=== PATIENT | male | born 1980 | race African-American/Black ===

== ENCOUNTER 2020-03-20 13:38 | Emergency (ER) | payer OTHER ==
[~2020-03-20] VITALS: Ht 175.3 cm; Wt 64.0 kg
--- NOTE | 2020-03-20 15:28 | NUR ---
CALLED MOHAN BUSTAMANTE FOR EVALUATION OF PT.
--- NOTE | 2020-03-20 16:01 | NUR ---
Social Service Consult: Per ER nurseAnatoly's request, this SW assessed the patient at bedside due to SI w/Plan. The patient appears disheveled, is restless, guarded, agitated with tangential speech, Intense Eye contact, and flat affect. The patient stated to SW that he is experiencing SI w/ plan to run into traffic. Per patient, other symptoms he is experiencing include: paranoia, auditory hallucinations, and anger. SW offered patient voluntary psychiatric placement at [facility]( ). Patient expressed understanding and was agreeable to plan. [facility] [employer] [facility], Miguel [phone] and made referral. Per Miguel, Toxicology report needs to be faxed to [phone]. PAUL relayed request for toxicology report to NurseAnatoly. Anatoly to follow up. Addendum: 03/20/20 at 1617 by ROBBY MILLER [facility] ([id number] [place] [address]; Tel: )
[2020-03-20 16:12] LABS: BASOPHILS # (AUTO) 0.1 /CMM (0.0-0.2); BASOPHILS % (AUTO) 0.9 % (0.0-2.0); EOSINOPHILS % (AUTO) 3.7 % (0.0-6.0); HEMATOCRIT 41 % (39-51); HEMOGLOBIN 13.6 g/dL (13.5-17.5); LYMPHOCYTES % (AUTO) 34.7 % (20.0-44.0); MEAN CORPUSCULAR HGB CONC 33 g/dl (31.0-36.0); MEAN CORPUSCULAR VOLUME 90 fL (80-96); MONOCYTES # (AUTO) 0.6 /CMM (0.1-1.30); NEUTROPHILS # (AUTO) 2.8 /CMM (1.8-8.9); NEUTROPHILS % (AUTO) 49.7 % (43.0-81.0); PLATELET COUNT (AUTO) 220 /CMM (150-450); RED BLOOD CELL COUNT(AUTO) 4.58 MIL/uL (4.5-6.0); WHITE BLOOD COUNT (AUTO) 5.7 K/uL (4.3-11.0)
[2020-03-20 16:24] LABS: CALCIUM, SERUM 8.3 mg/dL (8.5-10.1); CARBON DIOXIDE 32 mmol/L (21-32); CHLORIDE 105 mmol/L (98-107); GLUCOSE 102 mg/dL (74-106); POTASSIUM 3.6 mmol/L (3.5-5.1); SODIUM SERUM 144 mmol/L (136-145); UREA NITROGEN, BLOOD 12 mg/dL (7-18)
[2020-03-20 16:38] LABS: ALANINE AMINOTRANSFERASE 30 U/L (12-78); ALBUMIN 3.7 g/dL (3.4-5.0); ALCOHOL, BLOOD < 3 mg/dL (0-0); ALKALINE PHOSPHATASE 56 U/L (46-116); ASPARTATE AMINOTRANSFERASE 22 U/L (15-37); BILIRUBIN,DIRECT 0.1 mg/dL (0.0-0.2); BILIRUBIN,TOTAL 0.5 mg/dL (0.2-1.0); TOTAL PROTEIN, SERUM 6.7 g/dL (6.4-8.2)
[2020-03-20 16:39] LABS: ACETAMINOPHEN 0 ug/ml (10-30); SALICYLATE 1.1 mg/dL (2.8-20.0)
--- NOTE | 2020-03-20 17:00 | NUR ---
patient in bed, resting, no distress noted. sitter at bedside.
--- NOTE | 2020-03-20 19:30 | NUR ---
ASSUMED CARE FOR PATIENT.
--- NOTE | 2020-03-20 23:30 | NUR ---
pt sleeping in [place]. no signs of distress noted. pt vital signs stable. will cont to monitor pt.
--- NOTE | 2020-03-21 02:20 | NUR ---
[place] No signs of distress noted. pt vital signs stable. Sitter at bedside.
--- NOTE | 2020-03-21 05:30 | NUR ---
Call from Ev Schwartz. Pt pending bed availability at [facility].
--- NOTE | 2020-03-21 10:51 | NUR ---
[facility] WILL CALL US BACK IN AN HOUR. [phone]
--- NOTE | 2020-03-21 12:27 | NUR ---
PER [facility] AWAITING DISCHARGES FROM [facility] WILL CALL BACK AFTER 1315 HOURS WITH UPDATE
--- NOTE | 2020-03-21 13:10 | NUR ---
PT STATED HE IS NOT SUICIDAL AND WANTS TO BE DSICHARGE. AWARE.
--- NOTE | 2020-03-21 13:12 | NUR ---
Patient given written and verbal discharge instructions. Patient verbalizes understanding of instructions. Patient is ambulatory with steady gait. Refuses offer of halfway placement. Patient given list of available shelters in surrounding area.
[2020-03-21 13:18] VITALS: BP 118/62
== END 2020-03-21 13:19 | disposition home or self-care (01) ==
LOC: EDBD 13:38 → ER 14:08
DX: R45.851 Suicidal ideations (principal); F31.9 Bipolar disorder, unspecified; F60.0 Paranoid personality disorder; R45.1 Restlessness and agitation; Z04.6 Encounter for general psychiatric examination, requested by authority; Z60.2 Problems related to living alone
CPT/HCPCS: 36415; 80048; 80076; 80307; 80329; 85025; 99285; G0480